=== PATIENT | female | born 1970 | race Asian ===

== ENCOUNTER 2019-06-11 13:31 | Day surgery (SDC) | payer OTHER ==
[~2019-06-11 13:31] MED LIST: Buffered Lidocaine 1% SYRIN* 1 ML/SYRINGE INTRADERM ONE; Dexamethasone TAB* 4 MG PO ONE; DiMENhydriNATE IV* 50 MG/ML VIAL IV PUSH PRN; Famotidine IV* 10 MG/ML 2 ML (20 mg) IV ONE; HYDROmorphone INJ1* 1 MG/ML SYRINGE IV PRN; Lactated Ringers 1000 ML Bag* 1,000 ML IV SCH; Naloxone* 0.4 MG/ML 1 ML VIAL IV PRN; Ondansetron ODT TAB* 4 MG PO ONE; PROCHLORPERAZINE INJ 5 MG/ML 2 ML VIAL IV PRN; fentaNYL* 50 MCG/ML 2 ML VIAL (100 MCG VIAL) IV PRN; oxyCODONE TAB* 5 MG TAB PO PRN
[2019-06-11] MEDS ORDERED: Ondansetron ODT TAB* 4 MG ONE (13:48)
[2019-06-11] MEDS ORDERED: Dexamethasone TAB* 4 MG ONE (13:48)
[2019-06-11] MEDS ORDERED: Buffered Lidocaine 1% SYRIN* 1 ML/SYRINGE INTRADERM ONE (13:49)
[2019-06-11] MEDS ORDERED: Famotidine IV* 10 MG/ML 2 ML (20 mg) ONE (13:49)
[2019-06-11] MEDS ORDERED: ceFOXitin 2 GM IVPREMIX* 2 GM/50 ML BAG ONE (13:49)
[2019-06-11] MEDS ORDERED: fentaNYL* 50 MCG/ML 2 ML VIAL (100 MCG VIAL) ONE (14:57)
[2019-06-11] MEDS ORDERED: KETAMINE HCL* 50 MG/ML 10 ML VIAL ONE (14:57)
[2019-06-11] MEDS ORDERED: Midazolam* 1 MG/ML 2 ML VIAL (2 MG) ONE (14:57)
[2019-06-11] MEDS ORDERED: Bacitracin OINTMENT* 0.5% 0.5 oz TUBE ONE (15:23)
[2019-06-11] MEDS ORDERED: Bupivacaine 0.25% SDV* 30 ML ONE (15:23)
[2019-06-11] MEDS ORDERED: Gelfoam 12-7 ADSORBABL SPONGE* 1 EA SPONGE ONE (15:30)
[2019-06-11] MEDS ORDERED: Gelfoam Sponge SIZE 100* SPONGE ONE (15:30)
[2019-06-11] MEDS ORDERED: hydrALAZINE IV* 20 MG/ML VIAL ONE (15:45)
[2019-06-11] MEDS ORDERED: Propofol* 10 MG/ML 20 ML BTL ONE (15:51)
[2019-06-11] MEDS ORDERED: Ketorolac INJ* 30 MG/ML 1 ML VIAL ONE (15:51)
[2019-06-11] MEDS ORDERED: oxyCODONE TAB* 5 MG TAB ONE (16:41)
[2019-06-11 17:02] VITALS: BP 141/91
--- NOTE | 2019-06-12 02:14 | OP ---
CC: Dr. Major * DATE OF OPERATION: 06/11/19 - SDS DATE OF : 66 SURGEON: Mayito Zuniga MD HOSPICE BEREAVEMENT COORDINATOR: None. PRE-OP DIAGNOSIS: Anorectal mass. POST-OP DIAGNOSIS: Anorectal mass. OPERATIVE PROCEDURE: Transanal excision of anorectal mass. INDICATIONS: Large anorectal mass. Risks of excision including, but not limited to bleeding, infection, injury to local tissue, explained to the patient. She seemed to understand and agreed to the procedure and all questions were answered. DESCRIPTION OF PROCEDURE: The patient was placed in a prone Jackknife position in the operating room. The buttock was tapped apart. Sedation was given by the anesthesiologist. Preoperative antibiotics were given. The area was prepped and draped in a sterile fashion. Digital rectal examination revealed a mass, which was pedunculated and I was able to reduce the mass out through the anus. Again, the mass was pedunculated and its base was at the squamous epithelium just outside the mucosal epithelial border. It had a relatively wide base. The base was anesthetized with plain Marcaine. Two separate 2-0 chromic sutures were placed at the base in [id number] for hemostasis and the base was divided using cautery. The mass measured around 3.5 cm. It was firm and sent to Pathology. It appeared consistent with what is likely a very large hypertrophied anal papilla with calcified tip. It was not ulcerated. EBL was minimal for the procedure. Hemostasis was intact. Antibiotic ointment and dressing was applied. The patient tolerated the procedure well and she was taken to Recovery in stable condition. [id number][place] [place] [id number] [facility]
== END 2019-06-11 17:06 | disposition home or self-care (01) ==
LOC: OR 13:31
PROVIDERS: ATTEND Surgery
DX: K62.0 Anal polyp (principal); R03.0 Elevated blood-pressure reading, without diagnosis of hypertension; Z87.891 Personal history of nicotine dependence
CPT/HCPCS: 81025; 88305; A9270-GY; J0360; J0694; J1885; J2250; J2704; J3010; J3490; J8540